=== PATIENT | female | born 1960 | race African-American/Black ===

== ENCOUNTER 2018-02-25 09:06 | Emergency (ER) | payer OTHER, MEDICAID ==
[~2018-02-25] VITALS: Ht 157.5 cm; Wt 72.6 kg
[2018-02-25 09:15] VITALS: BP 125/80
[2018-02-25] MEDS ORDERED: Morphine Sulfate 4mg/ml Inj (IV/IM USE ONLY) IVP ONE (09:30)
[2018-02-25] MEDS ORDERED: Bacitracin Oint UD TOPIC ONE (09:30)
[2018-02-25] MEDS ORDERED: Vancomycin 1 GM in NS 275 ML IV ONE (09:30)
[2018-02-25] MEDS ORDERED: LORazepam Inj 2mg/ml 1ml IV ONE (09:30)
[2018-02-25 10:02] LABS: BASOPHILS % (AUTO) 1.2 % (0.0-2.0); EOSINOPHILS % (AUTO) 0.1 % (0.0-3.0); HEMATOCRIT 36.4 % (37.0-47.0); HEMOGLOBIN 12.7 G/DL (12.0-16.0); LYMPHOCYTES % (AUTO) 20.2 % (20.0-45.0); MEAN CORPUSCULAR VOLUME 91 FL (80-99); MONOCYTES % (AUTO) 11.2 % (1.0-10.0); NEUTROPHILS % (AUTO) 67.3 % (45.0-75.0); PLATELET COUNT 217 K/UL (150-450); RED BLOOD COUNT 3.98 M/UL (4.20-5.40); RED CELL DISTRIBUTION WIDTH 10.6 % (11.6-14.8); WHITE BLOOD COUNT 10.1 K/UL (4.8-10.8)
[2018-02-25 10:16] LABS: ANION GAP 9 mmol/L (5-15); BLOOD UREA NITROGEN 15 mg/dL (7-18); CALCIUM 8.9 MG/DL (8.5-10.1); CARBON DIOXIDE 25 MMOL/L (21-32); CHLORIDE 104 MMOL/L (98-107); CREATININE 0.7 MG/DL (0.55-1.30); POTASSIUM 3.9 MMOL/L (3.5-5.1); SODIUM 138 MMOL/L (136-145)
[2018-02-25] MEDS ORDERED: LAMICTAL25 MG ORAL (10:23)
[2018-02-25] MEDS ORDERED: OMEPRAZOLE20 M2 ORAL (10:23)
[2018-02-25] MEDS ORDERED: JANUVIA25 MG ORAL (10:23)
[2018-02-25] MEDS ORDERED: KEPPRA750 MG ORAL (10:23)
[2018-02-25] MEDS ORDERED: VENLAFAXINE HC150 MG ORAL (10:23)
[2018-02-25] MEDS ORDERED: GLIPIZIDE5 MG ORAL (10:23)
[2018-02-25 10:34] LABS: ALANINE AMINOTRANSFERASE 31 U/L (12-78); ALBUMIN/GLOBULIN RATIO 0.8 (1.0-2.7); ALKALINE PHOSPHATASE 115 U/L (46-116); ASPARTATE AMINO TRANSFERASE 25 U/L (15-37); BILIRUBIN,TOTAL 1.1 MG/DL (0.2-1.0); CREATINE KINASE 45 U/L (26-308)
[2018-02-25 10:35] LABS: BILIRUBIN,DIRECT 0.2 MG/DL (0.0-0.3)
--- NOTE | 2018-02-25 10:53 | Diagnostic Imaging Report ---
Indication: Dyspnea Comparison: None A single view chest radiograph was obtained. Findings: Cardiomediastinal appearance is within normal limits for age. The lungs are clear. Pulmonary vascularity is appropriate. The diaphragmatic contour is smooth and costophrenic angles are sharp. No pleural effusions are identified. The bones are unremarkable. Impression: No acute findings
--- NOTE | 2018-02-25 10:53 | Diagnostic Imaging Report ---
Indication: Right hand pain Findings: 3 views of the right hand were obtained. Normal bony mineralization and alignment are demonstrated. No acute fractures, erosions, or periosteal reaction are seen. Moderate soft tissue swelling is noted along the dorsum of the hand. Impression: No acute findings.
[2018-02-25 11:20] LABS: APPEARANCE,URINE CLEAR; BILIRUBIN, URINE NEGATIVE (NEGATIVE); COLOR,URINE PALE YELLOW; GLUCOSE, URINE (UA) 4+ (NEGATIVE); KETONES,URINE NEGATIVE (NEGATIVE); LEUKOCYTE ESTERASE ,URINE 3+ (NEGATIVE); NITRITE,URINE NEGATIVE (NEGATIVE); PH,URINE 6 (4.5-8.0); PROTEIN,URINE NEGATIVE (NEGATIVE); UROBILINOGEN,URINE 1 MG/DL (0.0-1.0)
--- NOTE | 2018-02-25 12:12 | Emergency Room Report ---
History of Present Illness General Chief Complaint: Seizure Source: Patient, EMS Present Illness HPI Patient presents after having a seizure. H/O seizures. She was recently started on new medication after seizures were not controlled (hospitalized). Since discharge, no major seizures. This was reported as "mild" without loss of consciousness. In addition she has pain in her right hand. She had an IV in that hand at [facility]. She complains of 10/10 pain there. It is hot. It worsened from last night. She states she has been able to take her medication. No NVD, abdominal pain. No cough. No headache. H/O multiple sclerosis H/O diabetes Allergies: Coded Allergies: No Known Allergies (Unverified , 02/25/18) Patient History Past Medical History: see triage record Social History: Denies: smoking, alcohol use, drug use Social History Narrative at home Reviewed Nursing Documentation: PMH: Agreed; PSxH: Agreed Nursing Documentation-PMH Past Medical History: No History, Except For Hx Diabetes: Yes Hx Neurological Problems: Yes - MS Hx Seizures: Yes Review of Systems All Other Systems: negative except mentioned in HPI Physical Exam Vital Signs Date Time Temp Pulse Resp B/P (MAP) Pulse Ox O2 Delivery O2 Flow Rate FiO2 02/25/18 09:07 98.2 78 19 125/80 96 Room Air Sp02 EP Interpretation: reviewed, normal General Appearance: no apparent distress, GCS 15, Chronically Ill Head: normocephalic, atraumatic Eyes: bilateral eye normal inspection, bilateral eye PERRL ENT: moist mucus membranes - no lingual macerations Neck: supple Respiratory: lungs clear, normal breath sounds Cardiovascular #1: regular rate, rhythm Cardiovascular #2: 2+ radial (R) Gastrointestinal: normal inspection, normal bowel sounds, non tender, no mass, non-distended Musculoskeletal: back normal, gait/station normal, normal range of motion - except for R hand which is decreased due to swelling Neurologic: alert, oriented x3, motor strength/tone normal, DTRs symmetric - hyperreflexic, sensory intact Psychiatric: mood/affect normal Skin: other - erythema and swelling R hand Medical Decision Making Diagnostic Impression: Primary Impression: Seizure Additional Impressions: Cellulitis of right hand Hyperglycemia UTI (urinary tract infection) Qualified Codes: N30.00 - Acute cystitis without hematuria ER Course Patient presents after having a seizure after recent admission. Differential includes uncontrolled seizures, subtherapeutic levels, electrolyte abnormality amongst others. In addition to that she has a cellulitic right hand that needs IV antibiotics and possibly hand surgeon evaluation. Patient will be evaluated with EKG, chest x-ray and right hand x-ray. She'll be treated with analgesia, antibiotics and also Ativan to prevent further seizures. CT not indicated based on neurologic exam. EKG with normal sinus rhythm and sinus arrhythmia not sick ST-T wave changes. Chest x-ray no infiltrates. A right hand with swelling without any gas. Labs with normal CBC. CMP with elevated glucose. Dose of Keppra here. Antibiotics begun for hand infection and UTI. Discussed with HMO who agrees with transfer. Hand pain improved. Repeated analgesia. Improved. Laboratory Tests Test 02/25/18 09:20 02/25/18 09:30 02/25/18 10:50 Lactic Acid Level 1.90 mmol/L (0.4-2.0) White Blood Count 10.1 K/UL (4.8-10.8) Red Blood Count 3.98 M/UL (4.20-5.40) L Hemoglobin 12.7 G/DL (12.0-16.0) Hematocrit 36.4 % (37.0-47.0) L Mean Corpuscular Volume 91 FL (80-99) Mean Corpuscular Hemoglobin 31.9 PG (27.0-31.0) H Mean Corpuscular Hemoglobin Concent 34.9 G/DL (32.0-36.0) Red Cell Distribution Width 10.6 % (11.6-14.8) L Platelet Count 217 K/UL (150-450) Mean Platelet Volume 11.7 FL (6.5-10.1) H Neutrophils (%) (Auto) 67.3 % (45.0-75.0) Lymphocytes (%) (Auto) 20.2 % (20.0-45.0) Monocytes (%) (Auto) 11.2 % (1.0-10.0) H Eosinophils (%) (Auto) 0.1 % (0.0-3.0) Basophils (%) (Auto) 1.2 % (0.0-2.0) Prothrombin Time 10.1 SEC (9.30-11.50) Prothrombin Time INR 1.0 (0.9-1.1) PTT 26 SEC (23-33) Sodium Level 138 MMOL/L (136-145) Potassium Level 3.9 MMOL/L (3.5-5.1) Chloride Level 104 MMOL/L (98-107) Carbon Dioxide Level 25 MMOL/L (21-32) Anion Gap 9 mmol/L (5-15) Blood Urea Nitrogen 15 mg/dL (7-18) Creatinine 0.7 MG/DL (0.55-1.30) Estimate Glomerular Filtration Rate > 60 mL/min (>60) Glucose Level 320 MG/DL (74-106) H Calcium Level 8.9 MG/DL (8.5-10.1) Total Bilirubin 1.1 MG/DL (0.2-1.0) H Direct Bilirubin 0.2 MG/DL (0.0-0.3) Aspartate Amino Transferase (AST) 25 U/L (15-37) Alanine Aminotransferase (ALT) 31 U/L (12-78) Alkaline Phosphatase 115 U/L (46-116) Total Creatine Kinase 45 U/L (26-308) Troponin I 0.002 ng/mL (0.000-0.056) Pro-B-Type Natriuretic Peptide 293 pg/mL (0-125) H Total Protein 6.6 G/DL (6.4-8.2) Albumin 3.0 G/DL (3.4-5.0) L Globulin 3.6 g/dL Albumin/Globulin Ratio 0.8 (1.0-2.7) L Urine Color Pale yellow Urine Appearance Clear Urine pH 6 (4.5-8.0) Urine Specific [place] 1.020 (1.005-1.035) Urine Protein Negative (NEGATIVE) Urine Glucose (UA) 4+ (NEGATIVE) H Urine Ketones Negative (NEGATIVE) Urine Blood Negative (NEGATIVE) Urine Nitrite Negative (NEGATIVE) Urine Bilirubin Negative (NEGATIVE) Urine Urobilinogen 1 MG/DL (0.0-1.0) H Urine Leukocyte Esterase 3+ (NEGATIVE) H Urine RBC 0-2 /HPF (0 - 2) Urine WBC 10-15 /HPF (0 - 2) H Urine Squamous Epithelial Cells Occasional /LPF Urine Bacteria Occasional /HPF (NONE) EKG Diagnostic Results Rate: normal Rhythm: NSR ST Segments: no acute changes - LAE Rhythm Strip Diag. Results EP Interpretation: yes Rhythm: NSR, no PVC's, no ectopy Chest X-Ray Diagnostic Results Chest X-Ray Diagnostic Results : Chest X-Ray Ordered: Yes # of Views/Limited/Complete: 1 View Indication: Other EP Interpretation: Yes Interpretation: no consolidation, no effusion, no pneumothorax Impression: No acute disease Electronically Signed by: Electronically signed by Zhen De Guzman MD Other X-Ray Diagnostic Results Other X-Ray Diagnostic Results : X-Ray ordered: R hian # of Views/Limited Vs Complete: 3 View Indication: Other Interpretation: no dislocation, no fractures, other - Soft tissue swelling Impression: Other Electronically Signed by: Electronically signed by Zhen De Guzman MD Last Vital Signs Date Time Temp Pulse Resp B/P (MAP) Pulse Ox O2 Delivery O2 Flow Rate FiO2 02/25/18 15:22 98.9 74 22 132/70 100 Room Air Status: improved [facility] Condition: Serious Referrals: NON PHYSICIAN (PCP) Zhen De Guzman MD Feb 25, 2018 12:12
[2018-02-25 12:13] VITALS: BP 121/52
[2018-02-25] MEDS ORDERED: cefTRIAXone 1 GM in NS 55 ML IVPB ONE (12:15)
[2018-02-25] MEDS ORDERED: levETIRAcetam 500mg/NS100ml 100 ML IVPB ONE (13:30)
[2018-02-25 14:06] VITALS: BP 128/64
[2018-02-25 15:22] VITALS: BP 132/70
--- NOTE | 2018-02-26 16:42 | Cardiology Report ---
APPROVED REPORT EKG Measurement Heart [id number] Normal sinus rhythm with sinus arrhythmia Nonspecific T wave abnormality Abnormal ECG
== END 2018-02-25 15:22 | disposition short-term general hospital (02) ==
LOC: EMR 09:50 → EDBEDREQ 11:24 → EMR 15:22
DX: G40.909 Epilepsy, unspecified, not intractable, without status epilepticus (principal); L03.113 Cellulitis of right upper limb; E11.65 Type 2 diabetes mellitus with hyperglycemia; N39.0 Urinary tract infection, site not specified; G35 Multiple sclerosis
CPT/HCPCS: 36415; 71045; 80053; 81003; 82248; 82550; 82962; 83605; 83880; 84484; 85025; 85610; 85730; 87040; 87086; 93005; 96361; 96365; 96367; 96375; 99285; J2405